=== PATIENT | female | born 1940 | race Two or more races ===

== ENCOUNTER 2022-03-27 12:55 | Inpatient (IN) | payer OTHER, MEDICAID ==
[~2022-03-27] VITALS: Ht 165.1 cm; Wt 74.4 kg
[2022-03-27 05:00] VITALS: BP 137/65
[2022-03-27 14:13] LABS: Basophils # (auto) 0 10 ^3/uL (0-0.2); Basophils % (auto) 0.4 % (0.0-2.0); Eosinophils # (auto) 0.1 10 ^3/uL (0-0.8); Eosinophils % (auto) 1.2 % (0.0-7.0); Hematocrit 40.5 % (36.0-46.0); Hemoglobin 13.8 g/dL (12.2-16.2); Lymphocytes # (auto) 1.6 10 ^3/uL (0.4-5.4); Lymphocytes % (auto) 25.8 % (10.0-50.0); Mean Corpuscular Hemoglobin 31.3 pg (28.0-32.0); Mean Corpuscular Hgb Conc. 34.1 g/dL (32.0-36.0); Mean Corpuscular Volume 91.7 fL (80.0-100.0); Monocytes # (auto) 0.4 10 ^3/uL (0-1.3); Neutrophils % (auto) 65.6 % (37.0-80.0); Nucleated Red Blood Cells % 0.1 %; Red Blood Cells 4.42 10^6/uL (4.0-5.20); Red Cell Distribution Width 15.2 % (11.8-14.3); White Blood Cell 6.1 10^3/uL (4.4-10.8)
[2022-03-27 14:32] LABS: Albumin 3.7 g/dL (3.4-5.0); BUN/Creatinine Ratio 12.7
[2022-03-27 14:35] LABS: Bilirubin, Total 0.5 mg/dL (0.2-1.0); Total Protein 7.6 g/dL (6.4-8.2)
[2022-03-27] MEDS ORDERED: METOPROLOL TARTRATE 1MG/1ML-5ML VIAL IV PRN ×2 (17:45→23:30)
[2022-03-27] MEDS ORDERED: NITROGLYCERIN 0.4 MG SL TAB SL PRN (17:45)
[2022-03-27] MEDS ORDERED: MORPHINE SULFATE INJ 2 MG/ml SYRG IV PRN ×2 (17:45→19:00)
[2022-03-27] MEDS ORDERED: ACETAMINOPHEN 325 MG TAB PO PRN (19:00)
[2022-03-27] MEDS ORDERED: FAMOTIDINE (10MG/ML) 2ML VL IV ONE (19:00)
[2022-03-27] MEDS ORDERED: DOCUSATE SOD 100 MG CAP PO PRN (19:00)
[2022-03-27] MEDS ORDERED: hydrALAZINE HCL 20 MG/ML VL IV PRN (19:00)
[2022-03-27] MEDS ORDERED: ONDANSETRON HCL 4 MG/2 ML VIAL IV PRN (19:00)
[2022-03-27] MEDS ORDERED: LORazepam 0.5 MG TAB PO PRN (19:00)
[2022-03-27] MEDS ORDERED: IOHEXOL 350 MG/ML 100ML IJ ONE ×2 (19:25→20:47)
[2022-03-27 20:06] LABS: Magnesium 2.3 mg/dL (1.6-2.6); Phosphorus 3.9 mg/dL (2.5-4.90)
[2022-03-27] MEDS: HYDROcodone-ACET 5/325MG TAB PO PRN (20:09)
[2022-03-27] MEDS ORDERED: AMLO-489 PO (21:51)
[2022-03-27] MEDS ORDERED: FENO160T8 PO (21:51)
[2022-03-27] MEDS ORDERED: FAMO-12 PO (21:51)
[2022-03-27] MEDS ORDERED: TIZA4CAP PO (21:51)
[2022-03-27] MEDS ORDERED: ACET-1156 PO (21:51)
[2022-03-27] MEDS ORDERED: GABA-339 PO (21:51)
[2022-03-27] MEDS: APIXABAN 5 MG TAB PO SCH (22:20)
[2022-03-27] MEDS: ATORVASTATIN 20 MG TAB PO SCH (22:21)
[2022-03-27 22:42] LABS: INR 1.08 (0.9-1.15); Partial Thromboplastin Time 27.8 sec (23.6-33.0)
[2022-03-27] MEDS ORDERED: IPRATROPIUM BROM 0.5 MG/2.5ML INH SOL NEB ONE (23:30)
[2022-03-27] MEDS ORDERED: NIFEdipine ER 30 MG TAB PO ONE (23:30)
[2022-03-28] MEDS: levoFLOXacin 500MG 100 ML IV SCH ×2 (00:24→22:07)
[2022-03-28] MEDS ORDERED: IPRATROPIUM BROM 0.5 MG/2.5ML INH SOL NEB PRN (02:00)
[2022-03-28] MEDS ORDERED: IPRATROPIUM BROM 0.5 MG/2.5ML INH SOL NEB SCH (02:00)
[2022-03-28] MEDS: HYDROcodone-ACET 5/325MG TAB PO PRN (02:59)
[2022-03-28] MEDS ORDERED: ACETYLCYSTEINE 10 %(100MG/ML) SOL 4ML NEB SCH (06:00)
[2022-03-28] MEDS: FUROSEMIDE 20 MG/2 ML VIAL IV SCH ×2 (06:51→18:44)
[2022-03-28 09:00] VITALS: BP 132/69
[2022-03-28] MEDS: NIFEdipine ER 30 MG TAB PO SCH (09:49)
[2022-03-28] MEDS: FAMOTIDINE (10MG/ML) 2ML VL IV SCH (09:49)
[2022-03-28] MEDS: APIXABAN 5 MG TAB PO SCH (09:49)
[2022-03-28] MEDS ORDERED: PNEUMOCOCCAL VACC POLYS 25 MCG/0.5 ML VIAL IM ONE (10:00)
[2022-03-28] MEDS ORDERED: ASPirin 81 mg TAB PO SCH (10:00)
[2022-03-28 13:00] VITALS: BP 106/52
[2022-03-28 14:24] VITALS: BP 106/52
[2022-03-28 17:00] VITALS: BP 121/45
[2022-03-28 18:57] LABS: Basophils # (auto) 0 10 ^3/uL (0-0.2); Basophils % (auto) 0.4 % (0.0-2.0); Eosinophils # (auto) 0.1 10 ^3/uL (0-0.8); Eosinophils % (auto) 1.5 % (0.0-7.0); Hemoglobin 12.6 g/dL (12.2-16.2); Lymphocytes # (auto) 2.1 10 ^3/uL (0.4-5.4); Lymphocytes % (auto) 33.5 % (10.0-50.0); Mean Corpuscular Hemoglobin 31.1 pg (28.0-32.0); Mean Corpuscular Hgb Conc. 34.1 g/dL (32.0-36.0); Mean Corpuscular Volume 91.2 fL (80.0-100.0); Monocytes # (auto) 0.5 10 ^3/uL (0-1.3); Monocytes % (auto) 8.3 % (0.0-12.0); Neutrophils # (auto) 3.5 10 ^3/uL (1.6-8.6); Neutrophils % (auto) 56.3 % (37.0-80.0); Nucleated Red Blood Cells % 0.2 %; Red Blood Cells 4.06 10^6/uL (4.0-5.20); Red Cell Distribution Width 15.1 % (11.8-14.3); White Blood Cell 6.2 10^3/uL (4.4-10.8)
[2022-03-28 19:09] LABS: Potassium 3.3 mmol/L (3.5-5.1); Uric Acid 4.4 mg/dL (2.6-6.0)
[2022-03-28 19:14] LABS: INR 1.18 (0.9-1.15); Partial Thromboplastin Time 33.3 sec (23.6-33.0)
[2022-03-28 19:16] LABS: Albumin 3.5 g/dL (3.4-5.0); BUN/Creatinine Ratio 11.9; Bilirubin, Total 0.4 mg/dL (0.2-1.0); CRP High Sensitivity 0.84 mg/dL (< 0.3); Calcium 8.8 mg/dL (8.5-10.1); Phosphorus 3.6 mg/dL (2.5-4.90); Total Protein 7.1 g/dL (6.4-8.2)
[2022-03-28 19:28] LABS: Thyroid Stimulating Hormone 1.76 uIU/mL (0.358-3.74)
[2022-03-28 22:00] VITALS: BP_SYST 121; BP_SYST 124; BP_DIAS 53; BP_DIAS 59
[2022-03-28] MEDS: ATORVASTATIN 20 MG TAB PO SCH (22:08)
[2022-03-28] MEDS: APIXABAN 2.5 MG TAB PO SCH (22:08)
[2022-03-28] MEDS ORDERED: POTASSIUM CHL 20 Meq TABLET PO ONE (23:00)
[2022-03-29] MEDS: HYDROcodone-ACET 5/325MG TAB PO PRN (04:24)
[2022-03-29] MEDS: FUROSEMIDE 20 MG/2 ML VIAL IV SCH ×2 (05:53→18:00)
[2022-03-29 06:05] LABS: Potassium 4.3 mmol/L (3.5-5.1)
[2022-03-29 06:17] LABS: BUN/Creatinine Ratio 12.5; Calcium 8.6 mg/dL (8.5-10.1)
[2022-03-29 09:00] VITALS: BP 123/59
[2022-03-29] MEDS: NIFEdipine ER 30 MG TAB PO SCH (09:56)
[2022-03-29] MEDS: FAMOTIDINE (10MG/ML) 2ML VL IV SCH (09:57)
[2022-03-29] MEDS: APIXABAN 2.5 MG TAB PO SCH (09:57)
[2022-03-29 13:00] VITALS: BP 127/69
[2022-03-29] MEDS ORDERED: CAR3125T OR (14:19)
[2022-03-29] MEDS ORDERED: APIX2.5T PO (14:19)
[2022-03-29] MEDS ORDERED: FURO1TAB33 PO (14:20)
[2022-03-29] MEDS ORDERED: NIFE1TAB30 PO (14:20)
[2022-03-29] MEDS ORDERED: ATO40T PO (14:20)
[2022-03-29 16:11] VITALS: BP 127/69
[2022-03-29 17:00] VITALS: BP 129/54
== END 2022-03-29 19:25 | disposition home or self-care (01) | DRG 291 ==
LOC: ER 12:55 → EDBD 12:55 → TELE 17:32 → TELE-WESTW 23:53
PROVIDERS: ADMIT Internal Medicine; ATTEND Internal Medicine Geriatric Medicine
DX: I11.0 Hypertensive heart disease with heart failure (principal); I50.23 Acute on chronic systolic (congestive) heart failure; I16.9 Hypertensive crisis, unspecified; I48.0 Paroxysmal atrial fibrillation; E78.5 Hyperlipidemia, unspecified; Z20.822 Contact with and (suspected) exposure to COVID-19; E66.9 Obesity, unspecified; Z68.27 Body mass index [BMI] 27.0-27.9, adult; Z82.49 Family history of ischemic heart disease and other diseases of the circulatory system; Z83.3 Family history of diabetes mellitus; Z85.3 Personal history of malignant neoplasm of breast; Z90.711 Acquired absence of uterus with remaining cervical stump; Z91.14 Patient's other noncompliance with medication regimen; Z88.2 Allergy status to sulfonamides
CPT/HCPCS: 36415; 36600; 70450; 71045; 71275; 80048; 80053; 80061; 82728; 82805; 83036; 83615; 83690; 83735; 83880; 84100; 84443; 84484; 84550; 85025; 85379; 85610; 85652; 85730; 86141; 87040; 93005; 93306; 93886; 93970; 94640; 96374; G0378; J1956; J2405; J3490

== ENCOUNTER → 2022-03-27 | Emergency (ER) | payer OTHER ==
[~2022-03-27] MED LIST: ACET-1156 PO; AMLO-489 PO; APIX2.5T PO; ATO40T PO; CAR3125T OR; FAMO-12 PO; FENO160T8 PO; FURO1TAB33 PO; GABA-339 PO; NIFE1TAB30 PO; TIZA4CAP PO
== END | disposition left against medical advice (07) ==
LOC: EDUNIT# 13:41 → ER 13:42 → EDBD 13:42
DX: R53.1 Weakness (principal); Z20.822 Contact with and (suspected) exposure to COVID-19
CPT/HCPCS: 36415

== ENCOUNTER 2023-04-05 10:39 | Emergency (ER) | payer OTHER, MEDICAID ==
[~2023-04-05] VITALS: Ht 160 cm; Wt 70.0 kg
[2023-04-05 11:31] LABS: Basophils # (auto) 0.1 10 ^3/uL (0-0.2); Basophils % (auto) 1.4 % (0.0-2.0); Eosinophils # (auto) 0 10 ^3/uL (0-0.8); Eosinophils % (auto) 0.7 % (0.0-7.0); Hematocrit 43.2 % (36.0-46.0); Hemoglobin 14.7 g/dL (12.2-16.2); Lymphocytes # (auto) 0.9 10 ^3/uL (0.4-5.4); Lymphocytes % (auto) 12.1 % (10.0-50.0); Mean Corpuscular Hemoglobin 31.1 pg (28.0-32.0); Mean Corpuscular Volume 91.5 fL (80.0-100.0); Monocytes # (auto) 0.3 10 ^3/uL (0-1.3); Neutrophils # (auto) 6.2 10 ^3/uL (1.6-8.6); Neutrophils % (auto) 81.8 % (37.0-80.0); Nucleated Red Blood Cells % 0.4 %; Red Blood Cells 4.73 10^6/uL (4.0-5.20); Red Cell Distribution Width 14.3 % (11.8-14.3); White Blood Cell 7.6 10^3/uL (4.4-10.8)
[2023-04-05 15:19] LABS: Alanine Aminotransferase 16 U/L (13-56); Alkaline Phosphatase 152 U/L (45-117); Anion Gap 8 (5-15); Aspartate Aminotransferase 17 U/L (15-37); Bilirubin, Total 0.5 mg/dL (0.2-1.0); Blood Urea Nitrogen 7 mg/dL (7-18); Calcium 9.3 mg/dL (8.5-10.1); Carbon Dioxide 28 mmol/L (21-32); Chloride 106 mmol/L (98-107); GFR African American 139 mL/min; GFR Non-African American 115 mL/min; Glucose 110 mg/dL (74-106); Potassium 3.9 mmol/L (3.5-5.1); Sodium 142 mmol/L (136-145); Total Protein 8.1 g/dL (6.4-8.2)
[2023-04-05 15:20] LABS: Albumin 4.5 g/dL (3.4-5.0)
[2023-04-05 17:35] VITALS: BP 147/79
== END 2023-04-05 17:42 | disposition home or self-care (01) ==
LOC: ER 10:39 → EDBD 10:39 → ER 17:39
DX: R09.02 Hypoxemia (principal); I48.91 Unspecified atrial fibrillation; R06.00 Dyspnea, unspecified; I11.0 Hypertensive heart disease with heart failure; I50.9 Heart failure, unspecified; Z90.49 Acquired absence of other specified parts of digestive tract; Z90.710 Acquired absence of both cervix and uterus
CPT/HCPCS: 36415; 36600; 71045; 80053; 82805; 83880; 84484; 85025; 85379; 93005